=== PATIENT | male | born 2000 | race Caucasian/White ===

== ENCOUNTER 2022-02-05 08:52 | Emergency (ER) | payer SELFPAY ==
--- NOTE | ~2022-02-05 | CT_ITS ---
EXAMINATION: CT SOFT TISSUE NECK WITH CONTRAST CLINICAL INFORMATION: Swelling of jaw. COMPARISON: None TECHNIQUE: Following the intravenous administration of 85 mL of Omnipaque 350 intravenous contrast, helical imaging was performed in the axial plane with generation of coronal and sagittal reformatted images. This CT examination was performed using dose optimization techniques as appropriate, variously including the following: *Automated exposure control *Adjustment of mA and/or kV according to patient size (this includes techniques or standardized protocols for targeted exams where dose is matched to indication/reason for exam; i.e. extremities or head) *Use of iterative reconstruction technique DLP: 450.74 mGy-cm FINDINGS: Parotid glands, submandibular glands, and thyroid gland are normal. The nasopharynx, oral cavity, tongue base, and tonsillar pillars are unremarkable. No contour abnormality or pathologic enhancement within the oral cavity or pharyngeal mucosal space. No imaging evidence of pharyngitis, tonsillitis or peritonsillar abscess. The parapharyngeal fat planes are preserved. The hypopharynx, epiglottis, and preepiglottic space are normal. Laryngeal structures normal. No fluid collections in the deep soft tissues. Normal sized lymph nodes of the suprahyoid and infrahyoid neck without evidence of lymphadenopathy by size criteria. The carotid and vertebral arteries opacify normally; venous structures are unremarkable. The visualized esophagus is unremarkable. Skull base is normal and the mastoid air cells and middle ear cavities are clear. The visualized intracranial structures are unremarkable. No extra-axial fluid collection. The maxillofacial bones are intact. There are no periapical lucencies. No periodontal abscess. The paranasal sinuses are well aerated. The orbital gardner, globes and retrobulbar soft tissues are unremarkable. Cervical spine is normal. No prevertebral soft tissue swelling. Lung apices are clear. No apical mass or pneumothorax. CT/CT soft tissue neck w IV con IMPRESSION: No significant imaging findings within the neck. No evidence of maxillofacial injury, soft tissue mass, abscess or lymphadenopathy.
--- NOTE | ~2022-02-05 | XR_ITS ---
EXAMINATION: XR CHEST CLINICAL INFORMATION: Hemoptysis COMPARISON: None TECHNIQUE: Frontal view of the chest was obtained. FINDINGS: The cardiac silhouette does not appear enlarged. The lungs are well inflated. There is central bronchial wall thickening. Hilar and mediastinal contours are unremarkable. The lungs are otherwise clear. No pleural effusion or pneumothorax. Normal bony structures. XR/XR chest 1V IMPRESSION: Well-inflated lungs. Central bronchial wall thickening suggestive of bronchitis or asthma. If hemoptysis persists, follow-up chest CT or bronchoscopy should be considered.
--- NOTE | ~2022-02-05 | CT_ITS ---
EXAMINATION: CT ANGIOGRAM OF THE CHEST WITH AND WITHOUT CONTRAST (CT PULMONARY ANGIOGRAM FOR PE) CT ABDOMEN AND PELVIS WITH IV CONTRAST CLINICAL INFORMATION: Hemoptysis. Question PE. White blood cell count 17,000. Question appendicitis. Question gallstones COMPARISON: Chest x-ray earlier today TECHNIQUE: Prior to contrast administration, noncontrast localization images were obtained. Subsequently, multidetector volumetric imaging was performed from the thoracic inlet to the pubic symphysis through the chest, abdomen, and pelvis following the administration of 85 mL Omnipaque 350 intravenous contrast. No contrast reaction reported Sagittal, coronal, and MIP oblique sagittal (through the chest only) reformatted images were obtained on the CT workstation, uploaded to PACS, and reviewed. Total exam dose-length product 360 mGy-cm This CT examination was performed using dose optimization techniques as appropriate, variously including the following: *Automated exposure control *Adjustment of mA and/or kV according to patient size (this includes techniques or standardized protocols for targeted exams where dose is matched to indication/reason for exam; i.e. extremities or head) *Use of iterative reconstruction technique FINDINGS: QUALITY OF STUDY/CONTRAST BOLUS: Suboptimal. The contrast density in the main pulmonary artery is only 355 Hounsfield units, dropping to less than 250 Hounsfield units in the left and right main pulmonary arteries. There is extensive respiratory motion artifact and contrast under filling particularly in the lower lobes. PULMONARY ARTERIES: No central pulmonary embolus seen. THORACIC AORTA: No aneurysm or dissection. LUNG: There is respiratory motion artifact. Largely expiratory scan. There are some cystic spaces posteriorly which could represent areas of air trapping in the setting of small airways disease. Moderate central bronchial wall thickening is present. PLEURA: No pleural effusion or pneumothorax. MEDIASTINUM: Normal heart size. No pericardial effusion. No hilar or mediastinal lymphadenopathy. No evidence of septal bowing or right heart strain. CHEST WALL/AXILLA: No axillary or internal mammary lymphadenopathy. ABDOMEN/PELVIS: LIVER, GALLBLADDER AND BILIARY TREE: The liver is normal in size, shape, and attenuation. No focal hepatic lesion or biliary ductal dilatation is present. The gallbladder is unremarkable with no evidence of radiopaque gallstones, gallbladder wall thickening, or obvious pericholecystic inflammatory changes. PANCREAS: Normal; no mass or surrounding fluid. SPLEEN: Normal size. No focal lesion. ADRENAL GLANDS: Normal; no mass. KIDNEYS AND URETERS: The kidneys are normal in size, shape, and attenuation. No hydronephrosis, hydroureter, or calculi. GASTROINTESTINAL TRACT: Stomach and small bowel non-dilated. No colonic wall thickening or pericolonic inflammatory changes. Well-seen entirely normal appendix. ABDOMINAL WALL: No significant hernia is appreciated. LYMPHOVASCULAR STRUCTURES: No lymphadenopathy. The aorta is unremarkable. BLADDER: No focal mass or wall thickening seen. No bladder calculi. PELVIC VISCERA: The prostate and seminal vesicles are normal. OSSEOUS STRUCTURES: No acute or suspicious osseous abnormality. CT/CT abdomen pelvis w IV con IMPRESSION: Limited study for ulnar emboli due to technical reasons described above. No central pulmonary embolus seen. Moderate central bronchial wall thickening. Areas of possible air trapping in keeping with airways disease. No acute findings in the abdomen or pelvis. VTE: negative
[2022-02-05 08:58] VITALS: BP 118/80; PULSE 84; RESP 15; TEMP 36.6; O2SAT 98; BMI 22.0
--- NOTE | 2022-02-05 11:09 | ECG_ITS ---
Test Reason : COUGHING UP BLOOD Blood Pressure : / mmHG Vent. Rate : 069 BPM Atrial Rate : 069 BPM P-R Int : 146 ms QRS Dur : 096 ms QT Int : 386 ms P-R-T Axes : 075 079 059 degrees QTc Int : 413 ms Normal sinus rhythm with sinus arrhythmia Normal ECG No previous ECGs available Referred By: Fer Grimes Electronically Signed By:RUDOLPH CHANEY MD
--- NOTE | 2022-02-05 11:12 | ED.GENADULT ---
HPI - General Adult General Chief complaint: General Medical Stated complaint: Lump on jaw Time Seen by Provider: 02/05/22 10:15 Source: patient Mode of arrival: ambulatory Limitations: no limitations History of Present Illness HPI narrative: 22-year-old healthy male presents to ED for mass on left jaw since yesterday and then states coughing up specks of blood. Patient states had 2 episodes of those yesterday. Patient denies any chest pain or shortness of breath patient denies any fever, chills, night sweats, weight loss. Patient admits to recently shaving his jawline and bobo growing back. Related Data Previous Rx's Medication Instructions Recorded albuterol sulfate 90 mcg/actuation 2 puff inhalation Q4-6H PRN 02/05/22 aerosol inhaler shortness of breath or wheezing #8.5 grams azithromycin 250 mg tablet See Rx Instructions PO .COMPLEX #6 02/05/22 tabs Allergies Allergy/AdvReac Type Severity Reaction Status Date / Time No Known Allergies Allergy Verified 02/05/22 09:56 Review of Systems Review of Systems: Lump on jaw and coughing of specks of blood Yes all other systems are reviewed and are negative [facility]LY [facility] Social History Social History Advance Directives: No Advance Directives Information Provided: Yes Physical Exam ED Vital Signs: Vital Signs - 24 hr 02/05/22 08:58 Temperature 98 F Pulse Rate 84 Respiratory Rate 15 Blood Pressure 118/80 Pulse Oximetry 98 Oxygen Delivery Method Room Air BMI result Body Mass Index 22.0 Const General: cooperative, healthy appearing, comfortable, no acute distress, well developed, alert, awake and Physically active Orientation/consciousness: oriented to person, oriented to place, oriented to time and patient oriented x3 HENMT Other: Negative for any facial swelling, neck swelling, or submandibular swelling. Negative for any mass on inspection or palpation of neck, submandibular, and face. Oral exam negative for any dental abscess, trismus, drooling, tongue swelling, or floor tongue swelling. Head: Yes normal to inspection, Yes No palpable skull fracture present, Yes normocephalic, Yes atraumatic and No abrasion Eyes General: appearance normal, both eyes and all related structures Neck Neck: Yes normal visual inspection, Yes full ROM, Yes no lymphadenopathy, Yes no meningeal signs, Yes trachea midline, Yes supple, No anterior neck swelling and No tender Chest Chest palpation & inspection: normal inspection of the chest and normal palpation of entire chest wall Resp Effort & Inspection: normal respiratory effort and able to speak in complete sentences Auscultation: clear to auscultation bilaterally Cardio Jugular venous distension: no JVD Heart sounds: S1 normal heart sound present and S2 normal heart sound present GI Inspection: Yes normal to inspection and No abdominal wall ecchymosis Palpation (GI): Soft to palpation, not firm, nontender, no guarding and not rigid General: No CVA tenderness and Yes no CVA tenderness Back/Spine/Pelvis Back: no CVA tenderness, No CVA tenderness and No back tenderness Skin General skin exam: no rashes or lesions noted and elasticity normal Neuro General: oriented to person, oriented to place, oriented to time, patient oriented x3, gait normal, tone normal, no meningeal signs and deep tendon reflexes 2+ bilaterally Cranial nerves: Yes CN's II-XII intact bilaterally Extrem Other: Bilateral lower extremity negative for swelling, pitting edema, calf tenderness General: Yes normal to inspection and Yes full ROM Psych Appearance: grossly normal, well kempt and not disheveled Course Course Course Narrative: His exam is not impressive for any facial swelling or neck swelling or mass on the face neck or jaw. NOt Suspecting any Hodgkin's/non-Hodgkin lymphoma. Not suspecting any retropharyngeal abscess or Gasper's angina. Not suspecting any dental abscess. Not suspecting any facial abscess. Patient does states episodes of coughing up blood so will do chest x-ray and D-dimer to make sure not missing a PE. Reevaluation(s) Reevaluation #1: Patient has elevated white blood cell count [id number] x-ray shows possible bronchitis but elevated D-dimer would do chest CT to rule out PE. Seventeen thousand will look for source of infection will do abdominal CT scan also. Does not have any facial or neck swelling but due to patient stating mass on jaw will do soft tissue neck CT. Time: 12:08 Reevaluation #2: Patient's neck CT came back normal patient abdominal CT scan came back normal. Chest CT, confirms bonchitis. UA came back negative. Patietn is not toxic appearing and vitals sigs are stable. Patient to be dsichaged. Patient well appearing. DUe to elevated WBC. will discharge with antibiotics if bronchitis caused by bacterial infection. Time: 16:14 Medical Decision Making MDM Narrative Medical decision making narrative: Bronchitis Lab Data Result diagrams: 02/05/22 11:31 02/05/22 11:30 Labs: Lab Results 02/05/22 02/05/22 02/05/22 Range/Units 11:27 11:30 11:30 WBC (4.8-10.8) X10*3/uL RBC (4.60-5.80) X10*6/uL Hgb (14.0-18.0) g/dl Hct (42.0-52.0) % MCV (80.0-98.0) fL MCH (27.0-33.0) pg MCHC (31.0-36.0) g/dl RDW (11.0-16.0) % Plt Count (160-400) X10*3/uL MPV (9.4-12.4) fL Immature Gran % (Auto) (0.0-0.4) % Neut % (Auto) (45-73) % Lymph % (Auto) (20-40) % [place] % (Auto) (2-11) % Eos % (Auto) (0-4) % Baso % (Auto) (0-2) % Lymph # (Auto) (1.2-4.9) X10*3/uL [place] # (Auto) (0.1-1.2) X10*3/uL Eos # (Auto) (0.0-0.4) X10*3/uL Baso # (Auto) (0.0-0.2) X10*3/uL Abs Immat Gran (auto) (0.00-0.03) X10*3/uL Absolute Neuts (auto) (2.0-8.3) x10*3/uL Absolute Nucleated RBC (0.0-0.012) X10*3/uL Nucleated RBC % (auto) (0.0-0.2) /100WBC PT (10.0-13.1) SEC INR (0.9-1.1) APTT (26.0-36.4) SEC D-Dimer High Sensitivty NG/ML Sodium 142 (135-145) mmol/L Potassium 4.4 (3.3-5.1) mmol/L Chloride 103 (96-108) mmol/L Carbon Dioxide 28 (22-29) mmol/L Anion Gap 15 (12-20) BUN 12 (9-16) mg/dL Creatinine 0.76 (0.5-1.4) mg/dL Estim Creat Clear Calc 139.4 Estimated GFR > 60 Random Glucose 107 (60-115) mg/dL Calcium 10.2 (8.4-10.2) mg/dL Total Bilirubin 0.2 (0.0-1.0) mg/dL AST 20 (5-37) U/L ALT 17 (0-40) U/L Alkaline Phosphatase 80 (39-117) U/L Troponin I High Sens < 3.5 (<3.5-35.0) ng/L Total Protein 8.5 H (6.5-8.0) g/dL Albumin 4.7 (3.5-5.0) g/dL Urine Color Urine Appearance Urine pH (5.0-9.0) Ur Specific [place] (1.005-1.025) Urine Protein (Neg-Trace) mg/dL Urine Glucose (UA) (Negative) mg/dL Urine Ketones (Negative) mg/dL Urine Blood (Negative) Urine Nitrite (Negative) Ur Leukocyte Esterase (Negative) COVID-19 ([facility]I) Negative (Negative) COVID-19 Clin Com See Note S. pyogenes GrpA VAIBHAV (Negative) 02/05/22 02/05/22 02/05/22 Range/Units 11:31 12:06 12:08 WBC 17.3 H (4.8-10.8) X10*3/uL RBC 4.83 (4.60-5.80) X10*6/uL Hgb 14.9 (14.0-18.0) g/dl Hct 43.8 (42.0-52.0) % MCV 90.7 (80.0-98.0) fL MCH 30.8 (27.0-33.0) pg MCHC 34.0 (31.0-36.0) g/dl RDW 12.5 (11.0-16.0) % Plt Count 306 (160-400) X10*3/uL MPV 10.3 (9.4-12.4) fL Immature Gran % (Auto) 0.5 H (0.0-0.4) % Neut % (Auto) 79.9 H (45-73) % Lymph % (Auto) 13.9 L (20-40) % [place] % (Auto) 4.9 (2-11) % Eos % (Auto) 0.5 (0-4) % Baso % (Auto) 0.3 (0-2) % Lymph # (Auto) 2.4 (1.2-4.9) X10*3/uL [place] # (Auto) 0.9 (0.1-1.2) X10*3/uL Eos # (Auto) 0.1 (0.0-0.4) X10*3/uL Baso # (Auto) 0.1 (0.0-0.2) X10*3/uL Abs Immat Gran (auto) 0.09 H (0.00-0.03) X10*3/uL Absolute Neuts (auto) 13.8 H (2.0-8.3) x10*3/uL Absolute Nucleated RBC 0.000 (0.0-0.012) X10*3/uL Nucleated RBC % (auto) 0.0 (0.0-0.2) /100WBC PT 12.4 (10.0-13.1) SEC INR 1.1 (0.9-1.1) APTT 31.0 (26.0-36.4) SEC D-Dimer High Sensitivty 254 NG/ML Sodium (135-145) mmol/L Potassium (3.3-5.1) mmol/L Chloride (96-108) mmol/L Carbon Dioxide (22-29) mmol/L Anion Gap (12-20) BUN (9-16) mg/dL Creatinine (0.5-1.4) mg/dL Estim Creat Clear Calc Estimated GFR Random Glucose (60-115) mg/dL Calcium (8.4-10.2) mg/dL Total Bilirubin (0.0-1.0) mg/dL AST (5-37) U/L ALT (0-40) U/L Alkaline Phosphatase (39-117) U/L Troponin I High Sens (<3.5-35.0) ng/L Total Protein (6.5-8.0) g/dL Albumin (3.5-5.0) g/dL Urine Color Urine Appearance Urine pH (5.0-9.0) Ur Specific [place] (1.005-1.025) Urine Protein (Neg-Trace) mg/dL Urine Glucose (UA) (Negative) mg/dL Urine Ketones (Negative) mg/dL Urine Blood (Negative) Urine Nitrite (Negative) Ur Leukocyte Esterase (Negative) COVID-19 ([facility]) (Negative) COVID-19 Clin Com S. pyogenes GrpA VAIBHAV Negative (Negative) 02/05/22 Range/Units 15:46 WBC (4.8-10.8) X10*3/uL RBC (4.60-5.80) X10*6/uL Hgb (14.0-18.0) g/dl Hct (42.0-52.0) % MCV (80.0-98.0) fL MCH (27.0-33.0) pg MCHC (31.0-36.0) g/dl RDW (11.0-16.0) % Plt Count (160-400) X10*3/uL MPV (9.4-12.4) fL Immature Gran % (Auto) (0.0-0.4) % Neut % (Auto) (45-73) % Lymph % (Auto) (20-40) % [place] % (Auto) (2-11) % Eos % (Auto) (0-4) % Baso % (Auto) (0-2) % Lymph # (Auto) (1.2-4.9) X10*3/uL [place] # (Auto) (0.1-1.2) X10*3/uL Eos # (Auto) (0.0-0.4) X10*3/uL Baso # (Auto) (0.0-0.2) X10*3/uL Abs Immat Gran (auto) (0.00-0.03) X10*3/uL Absolute Neuts (auto) (2.0-8.3) x10*3/uL Absolute Nucleated RBC (0.0-0.012) X10*3/uL Nucleated RBC % (auto) (0.0-0.2) /100WBC PT (10.0-13.1) SEC INR (0.9-1.1) APTT (26.0-36.4) SEC D-Dimer High Sensitivty NG/ML Sodium (135-145) mmol/L Potassium (3.3-5.1) mmol/L Chloride (96-108) mmol/L Carbon Dioxide (22-29) mmol/L Anion Gap (12-20) BUN (9-16) mg/dL Creatinine (0.5-1.4) mg/dL Estim Creat Clear Calc Estimated GFR Random Glucose (60-115) mg/dL Calcium (8.4-10.2) mg/dL Total Bilirubin (0.0-1.0) mg/dL AST (5-37) U/L ALT (0-40) U/L Alkaline Phosphatase (39-117) U/L Troponin I High Sens (<3.5-35.0) ng/L Total Protein (6.5-8.0) g/dL Albumin (3.5-5.0) g/dL Urine Color Yellow Urine Appearance Clear Urine pH 7.5 (5.0-9.0) Ur Specific [place] >= 1.030 H (1.005-1.025) Urine Protein Negative (Neg-Trace) mg/dL Urine Glucose (UA) Negative (Negative) mg/dL Urine Ketones Negative (Negative) mg/dL Urine Blood Negative (Negative) Urine Nitrite Negative (Negative) Ur Leukocyte Esterase Negative (Negative) COVID-19 ([facility]) (Negative) COVID-19 Clin Com S. pyogenes GrpA VAIBHAV (Negative) ECG Data Interpretation: Normal sinus rhythm. Ventricular rate 69. OK interval 146 pr QRS 96. QTC 413. Negative STEMI Discharge Plan Discharge Clinical Impression: Bronchitis Patient Disposition: Home, Self-Care Instructions: Acute Bronchitis (ED) Additional Instructions: Your neck and abdominal CT scan came back normal. Chest CT scan shows bronchitis. Your UA came back negative for UTI. You will be discharged with antiobitcs and albuterol inhaler. Return to the ED for chest pain, shortness of breath, headache, dysuria, hematuria, fever, chills, facial swelling, neck swelling, drooling, abdominal pain, or any other concerning symptoms. Please follow up with PCP Prescriptions: New albuterol sulfate 90 mcg/actuation HFA aerosol inhaler 2 puff inhalation Q4-6H PRN (Reason: shortness of breath or wheezing) Qty: 8.5 0RF azithromycin 250 mg tablet See Rx Instructions .ROUTE .COMPLEX Qty: 6 0RF Rx Instructions: For 250 mg dose pack: take 500 mg today (day 1), then 250 mg for 4 days (days 2-5) Stand Alone Forms: Work/School Release Interventions: ED Discharge Assessment Last Done: 02/05/22 17:07 Discharge Date/Time: 02/05/22 17:08 Print Language: Lao
[2022-02-05 11:34] LABS: MANUAL DIFF FLAG NO
[2022-02-05 11:36] LABS: Basophils Absolute Auto 0.1 X10*3/uL (0.0-0.2); Basophils Percent Auto 0.3 % (0-2); Eosinophils Absolute Auto 0.1 X10*3/uL (0.0-0.4); Eosinophils Percent Auto 0.5 % (0-4); Hematocrit 43.8 % (42.0-52.0); Hemoglobin 14.9 g/dl (14.0-18.0); Imm Gran Abs Auto 0.09 X10*3/uL (0.00-0.03); Imm Gran Pct Auto 0.5 % (0.0-0.4); Lymphocytes Absolute Auto 2.4 X10*3/uL (1.2-4.9); Lymphocytes Percent Auto 13.9 % (20-40); Mean Corpuscular Hemoglobin 30.8 pg (27.0-33.0); Mean Corpuscular Volume 90.7 fL (80.0-98.0); Mean Platelet Volume 10.3 fL (9.4-12.4); Monocytes Absolute Auto 0.9 X10*3/uL (0.1-1.2); Monocytes Percent Auto 4.9 % (2-11); Neutrophils Absolute Auto 13.8 x10*3/uL (2.0-8.3); Neutrophils Percent Auto 79.9 % (45-73); Platelet Count 306 X10*3/uL (160-400); Red Blood Count 4.83 X10*6/uL (4.60-5.80); Red Cell Distribution Width 12.5 % (11.0-16.0); White Blood Count 17.3 X10*3/uL (4.8-10.8)
[2022-02-05 11:50] LABS: COVID-19 Test Negative (Negative)
[2022-02-05 11:57] LABS: Alanine Aminotransferase 17 U/L (0-40); Albumin Level 4.7 g/dL (3.5-5.0); Alkaline Phosphatase 80 U/L (39-117); Anion Gap 15 (12-20); Aspartate Amino Transferase 20 U/L (5-37); Bilirubin Total 0.2 mg/dL (0.0-1.0); Blood Urea Nitrogen 12 mg/dL (9-16); Calcium 10.2 mg/dL (8.4-10.2); Carbon Dioxide 28 mmol/L (22-29); Chloride 103 mmol/L (96-108); Creatinine Clr Calc Pharmacy 139.4; Estimated Glomerular Filt Rate > 60; Glucose Random 107 mg/dL (60-115); Potassium 4.4 mmol/L (3.3-5.1); Sodium 142 mmol/L (135-145); Total Protein 8.5 g/dL (6.5-8.0)
[2022-02-05 11:58] LABS: Troponin-I High Sensitivity < 3.5 ng/L (<3.5-35.0)
[2022-02-05 12:20] LABS: INTERNATIONAL NORM RATIO 1.1 (0.9-1.1); Prothrombin Time 12.4 SEC (10.0-13.1)
[2022-02-05 12:22] LABS: D Dimer High Sensitivity 254 NG/ML
[2022-02-05 12:35] LABS: Strep A Nucleic Acid Negative (Negative)
[2022-02-05] MEDS: iohexoL 350 MG/ML 100 ML INFUS..BTL IV (13:56)
[2022-02-05 15:59] LABS: Appearance Urine Clear; Color Urine Yellow; Glucose Urine UA Negative (Negative); Leukocyte Esterase Urine Negative (Negative); Nitrite Urine Negative (Negative); PH 7.5 (5.0-9.0); Specific Gravity - Urine >= 1.030 (1.005-1.025); Urine Blood Negative (Negative); Urine Ketones Negative (Negative); Urine Protein Negative (Neg-Trace)
== END 2022-02-05 17:08 | disposition home or self-care (01) ==
PROVIDERS: Physician Assistant; Emergency Provider Student in an Organized Health Care Education/Training Program
DX: J40 Bronchitis, not specified as acute or chronic (principal); M54.2 Cervicalgia; R05.9 Cough, unspecified; R04.2 Hemoptysis; R06.02 Shortness of breath; Z79.899 Other long term (current) drug therapy; Z20.822 Contact with and (suspected) exposure to COVID-19
CPT/HCPCS: 36415; 70491; 71045; 71275; 74177; 80053; 81003; 84484; 85025; 85379; 85610; 85730; 87635; 87651; 93005; 99284; Q9967